=== PATIENT | female | born 1945 ===

== ENCOUNTER 2024-01-21 10:00 | Outpatient (RCR) | payer MEDICARE, SELFPAY ==
[2023-12-01 11:59] VITALS: PULSE 81
== END 2024-02-19 12:05 | disposition home or self-care (01) ==
LOC: ANHCPREHAB 10:00
PROVIDERS: PCP Physician Assistant
DX: Z95.5 Presence of coronary angioplasty implant and graft (principal)
CPT/HCPCS: 93798